=== PATIENT | male | born 1965 | race Caucasian/White ===

== ENCOUNTER 2024-10-15 10:57 | Emergency (ER) | payer OTHER ==
[2024-10-15 12:11] LABS: #Basophils 0.11 10x3/uL (0.0-0.2); #Eosinophils 0.27 10x3/uL (0.0-0.5); #Monocytes 0.95 10x3/uL (0.0-1.1); #Neutrophils 3.70 10x3/uL (1.5-8.4); %Basophils 1.4 % (0.0-2.0); %Eosinophils 3.5 % (0.0-6.0); %Lymphocytes 34.4 % (18.0-47.0); %Monocytes 12.3 % (0.0-10.0); %Neutrophils 47.9 % (40.0-75.0); Hematocrit 50.2 % (38.8-50.0); Hemoglobin 17.4 g/dL (13.5-17.5); Mean Corpuscular Hemoglobin 31.3 pg (27.0-33.0); Mean Corpuscular Volume 90.3 fL (81.2-95.1); Platelet Count 269 10x3/uL (150-450); Red Blood Cell (RBC) Count 5.56 10x6/uL (4.32-5.72); White Blood Cell (WBC) Count 7.73 10x3/uL (3.5-10.5)
[2024-10-15] MEDS ORDERED: Ondansetron PF 4 MG/2 ML Vial ONE (12:27)
[2024-10-15 12:40] LABS: Troponin I Less than 0.010 ng/mL (< 0.028)
[2024-10-15 12:47] LABS: ALT (SGPT) 49 U/L (Less than 45); AST (SGOT) 46 U/L (11-34); Albumin 3.8 g/dL (3.1-4.5); Alkaline Phosphatase 74 U/L (40-110); Anion Gap 13 mmol/L (10-20); BUN (Urea Nitrogen) 14 mg/dL (8.4-25.7); Bilirubin, Total 1.9 mg/dL (0.3-1.2); Calc. Creatinine Clearance 0 mL/min (70-130); Calcium 9.1 mg/dL (7.8-10.44); Carbon Dioxide 29 mmol/L (22-29); Chloride 102 mmol/L (98-107); Globulin 3.4 g/dL (2.4-3.5); Glucose 99 mg/dL (70-105); Lipase 33 U/L (8-78); Magnesium 2.0 mg/dL (1.6-2.6); Potassium 4.2 mmol/L (3.5-5.1); Sodium 140 mmol/L (136-145)
== END 2024-10-15 15:14 | disposition home or self-care (01) ==
LOC: CSHERS 10:57
DX: K57.92 Diverticulitis of intestine, part unspecified, without perforation or abscess without bleeding (principal); E11.9 Type 2 diabetes mellitus without complications
CPT/HCPCS: 36416; 76705; 80053; 83605; 83690; 83735; 83880; 84484; 85025; 93005; 96374; 96375; J2270; J2405

== ENCOUNTER 2024-12-12 19:55 | Inpatient (IN) | payer OTHER ==
[~2024-12-12 19:55] MED LIST: Iopamidol 300 61% 100 ML VIAL FS ONE
[2024-12-12 20:31] LABS: #Basophils 0.07 10x3/uL (0.0-0.2); #Eosinophils 0.54 10x3/uL (0.0-0.5); #Monocytes 1.14 10x3/uL (0.0-1.1); #Neutrophils 5.38 10x3/uL (1.5-8.4); %Basophils 0.8 % (0.0-2.0); %Eosinophils 6.0 % (0.0-6.0); %Lymphocytes 20.5 % (18.0-47.0); %Monocytes 12.7 % (0.0-10.0); %Neutrophils 59.7 % (40.0-75.0); Hematocrit 49.8 % (38.8-50.0); Hemoglobin 16.7 g/dL (13.5-17.5); Mean Corpuscular Hemoglobin 30.3 pg (27.0-33.0); Mean Corpuscular Volume 90.4 fL (81.2-95.1); Platelet Count 236 10x3/uL (150-450); Red Blood Cell (RBC) Count 5.51 10x6/uL (4.32-5.72); White Blood Cell (WBC) Count 9.01 10x3/uL (3.5-10.5)
[2024-12-12] MEDS ORDERED: Ondansetron PF 4 MG/2 ML Vial ONE (20:41)
[2024-12-12] MEDS ORDERED: Furosemide 40 MG (4 mL) VIAL ONE (20:41)
[2024-12-12 20:48] LABS: Troponin I Less than 0.010 ng/mL (< 0.028)
[2024-12-12 21:09] LABS: ALT (SGPT) 17 U/L (Less than 45); AST (SGOT) 25 U/L (11-34); Albumin 3.8 g/dL (3.1-4.5); Alkaline Phosphatase 67 U/L (40-110); Anion Gap 17 mmol/L (10-20); BUN (Urea Nitrogen) 18 mg/dL (8.4-25.7); Bilirubin, Total 1.8 mg/dL (0.3-1.2); Calc. Creatinine Clearance 0 mL/min (70-130); Calcium 8.5 mg/dL (7.8-10.44); Carbon Dioxide 20 mmol/L (22-29); Chloride 107 mmol/L (98-107); Globulin 3.3 g/dL (2.4-3.5); Glucose 126 mg/dL (70-105); Lipase 41 U/L (8-78); Magnesium 2.1 mg/dL (1.6-2.6); Potassium 4.7 mmol/L (3.5-5.1); Sodium 139 mmol/L (136-145)
[2024-12-12] MEDS ORDERED: diphenhydrAMINE 50 MG/ML VIAL ONE (21:21)
[2024-12-12 23:37] VITALS: BMI 38.0
[2024-12-12] MEDS ORDERED: Ondansetron PF 4 MG/2 ML Vial IVP PRN (23:37)
[2024-12-13] MEDS ORDERED: Simethicone Chewable 80 MG TAB PO PRN (00:17)
[2024-12-13 00:18] LABS: Troponin I Less than 0.010 ng/mL (< 0.028)
[2024-12-13 00:19] LABS: Magnesium 2.1 mg/dL (1.6-2.6)
[2024-12-13] MEDS: Azithromycin 500 MG in Sodium Chloride 0.9% 250 ML 250 ML IVPB SCH (00:22)
[2024-12-13] MEDS: cefTRIAXone\\ROCEPHIN 1 GM in Sodium Chloride 0.9% 100 ML IVPB SCH (01:02)
[2024-12-13 04:02] LABS: #Basophils 0.07 10x3/uL (0.0-0.2); #Eosinophils 0.52 10x3/uL (0.0-0.5); #Monocytes 1.15 10x3/uL (0.0-1.1); #Neutrophils 4.78 10x3/uL (1.5-8.4); %Basophils 0.8 % (0.0-2.0); %Eosinophils 6.1 % (0.0-6.0); %Lymphocytes 23.5 % (18.0-47.0); %Monocytes 13.5 % (0.0-10.0); %Neutrophils 55.9 % (40.0-75.0); Hematocrit 52.9 % (38.8-50.0); Hemoglobin 17.3 g/dL (13.5-17.5); Mean Corpuscular Hemoglobin 30.0 pg (27.0-33.0); Mean Corpuscular Volume 91.8 fL (81.2-95.1); Platelet Count 237 10x3/uL (150-450); Red Blood Cell (RBC) Count 5.76 10x6/uL (4.32-5.72); White Blood Cell (WBC) Count 8.55 10x3/uL (3.5-10.5)
[2024-12-13 04:15] LABS: ALT (SGPT) 16 U/L (Less than 45); AST (SGOT) 33 U/L (11-34); Albumin 4.2 g/dL (3.1-4.5); Alkaline Phosphatase 75 U/L (40-110); Anion Gap 16 mmol/L (10-20); BUN (Urea Nitrogen) 17 mg/dL (8.4-25.7); Bilirubin, Total 1.3 mg/dL (0.3-1.2); Calc. Creatinine Clearance 124 mL/min (70-130); Calcium 9.2 mg/dL (7.8-10.44); Carbon Dioxide 27 mmol/L (22-29); Chloride 102 mmol/L (98-107); Globulin 3.6 g/dL (2.4-3.5); Glucose 126 mg/dL (70-105); Potassium 4.1 mmol/L (3.5-5.1); Sodium 141 mmol/L (136-145)
[2024-12-13] MEDS: Nitroglycerin 2% Ointment 1 INCH/1 GM Packet TOP SCH (05:12)
[2024-12-13] MEDS ORDERED: Bumetanide 1 MG/4 ML VIAL IVP SCH (06:00)
[2024-12-13] MEDS: Acetaminophen 325 MG TAB PO PRN (07:33)
[2024-12-13] MEDS: Carvedilol 3.125 MG TAB PO SCH (08:05)
[2024-12-13] MEDS: Spironolactone 25 MG TAB PO SCH (08:05)
[2024-12-13] MEDS: Divalproex Sodium 250 MG ER.TAB PO SCH (08:50)
[2024-12-13] MEDS: Bumetanide 1 MG/4 ML VIAL IVP SCH (09:00)
[2024-12-13] MEDS: Famotidine 20 MG TAB PO SCH (09:09)
[2024-12-13] MEDS: Aspirin 81 mg Enteric Coated Tablet PO SCH (09:09)
[2024-12-13] MEDS: Famotidine/PF 20 mg/2ml Vial SLOW IVP SCH (09:10)
[2024-12-13] MEDS: Enoxaparin 40 MG (0.4 mL) SYRINGE SC SCH (09:13)
[2024-12-13] MEDS: diphenhydrAMINE 50 MG/ML VIAL IVP SCH (11:20)
[2024-12-13] MEDS: HYDROcodone/Acetaminophen 10/325 mg Tablet PO PRN (20:57)
[2024-12-14] MEDS: diphenhydrAMINE 25 MG CAP PO SCH (14:48)
[2024-12-14 16:45] VITALS: BP 126/62; TEMP 98.6
== END 2024-12-14 16:49 | DRG 190 ==
LOC: CSHERS 19:55 → CSHTELE 22:47 → EEVIPCON 22:47 → OBSVTOIN 12-13 16:57
PROVIDERS: ADMIT Internal Medicine; ATTEND Internal Medicine
DX: J44.1 Chronic obstructive pulmonary disease with (acute) exacerbation (principal); J96.01 Acute respiratory failure with hypoxia; K21.9 Gastro-esophageal reflux disease without esophagitis; E78.5 Hyperlipidemia, unspecified; E11.9 Type 2 diabetes mellitus without complications; I25.10 Atherosclerotic heart disease of native coronary artery without angina pectoris; F32.A Depression, unspecified; I86.1 Scrotal varices; K52.9 Noninfective gastroenteritis and colitis, unspecified; B18.2 Chronic viral hepatitis C; Z79.899 Other long term (current) drug therapy; Z79.51 Long term (current) use of inhaled steroids; Z79.82 Long term (current) use of aspirin; Z79.84 Long term (current) use of oral hypoglycemic drugs; Z95.5 Presence of coronary angioplasty implant and graft; Z88.8 Allergy status to other drugs, medicaments and biological substances
CPT/HCPCS: 36415; 36416; 71045; 71260; 74177; 80053; 83690; 83735; 83880; 84484; 85025; 85379; 93005; 93306; 94640; 94762; 96372; 96375; 96376; G0378; J0456; J0696; J1200; J1308; J1650; J1940; J2270; J2405; J2919; J3490; J7050; J7620; J7626; Q9967

== ENCOUNTER 2025-01-07 22:00 | Emergency (ER) | payer OTHER ==
[2025-01-07 22:33] LABS: Glucose, Urine (Dipstick) Negative (Negative); Leukocyte Negative (Negative); Protein, Urine (Dipstick) Negative (Neg-Trace); Specific Gravity, Urine Less/Equal 1.005 (1.005-1.030)
[2025-01-07 22:47] LABS: Bacteria/HPF Rare-Few HPF (None Seen); CAUTI Indications for Culture Dysuria,urgency,freq; Mucous/LPF Rare LPF (<2+); RBC/HPF None Seen HPF (0-3); WBC/HPF None Seen HPF (0-3)
[2025-01-07 22:49] LABS: Urine Culture Reflex No No
[2025-01-07 22:54] LABS: #Basophils 0.07 10x3/uL (0.0-0.2); #Eosinophils 0.44 10x3/uL (0.0-0.5); #Monocytes 0.99 10x3/uL (0.0-1.1); #Neutrophils 3.60 10x3/uL (1.5-8.4); %Basophils 0.8 % (0.0-2.0); %Eosinophils 5.2 % (0.0-6.0); %Lymphocytes 39.1 % (18.0-47.0); %Monocytes 11.7 % (0.0-10.0); %Neutrophils 42.8 % (40.0-75.0); Hematocrit 49.0 % (38.8-50.0); Hemoglobin 16.5 g/dL (13.5-17.5); Mean Corpuscular Hemoglobin 30.8 pg (27.0-33.0); Mean Corpuscular Volume 91.6 fL (81.2-95.1); Platelet Count 266 10x3/uL (150-450); Red Blood Cell (RBC) Count 5.35 10x6/uL (4.32-5.72); White Blood Cell (WBC) Count 8.43 10x3/uL (3.5-10.5)
[2025-01-07 23:08] LABS: ALT (SGPT) 16 U/L (Less than 45); AST (SGOT) 25 U/L (11-34); Albumin 4.1 g/dL (3.1-4.5); Alkaline Phosphatase 88 U/L (40-110); Anion Gap 13 mmol/L (10-20); BUN (Urea Nitrogen) 17 mg/dL (8.4-25.7); Bilirubin, Total 0.7 mg/dL (0.3-1.2); Calc. Creatinine Clearance 0 mL/min (70-130); Calcium 9.1 mg/dL (7.8-10.44); Carbon Dioxide 27 mmol/L (22-29); Chloride 102 mmol/L (98-107); Globulin 3.6 g/dL (2.4-3.5); Glucose 112 mg/dL (70-105); Lipase 42 U/L (8-78); Potassium 4.3 mmol/L (3.5-5.1); Sodium 138 mmol/L (136-145)
[2025-01-08] MEDS ORDERED: Ketorolac Tromethamine 30 MG (1 mL) VIAL ONE (01:31)
== END 2025-01-08 01:31 ==
LOC: CSHERS 22:00
DX: K57.32 Diverticulitis of large intestine without perforation or abscess without bleeding (principal); I11.0 Hypertensive heart disease with heart failure; I50.9 Heart failure, unspecified; E11.9 Type 2 diabetes mellitus without complications; J44.9 Chronic obstructive pulmonary disease, unspecified
CPT/HCPCS: 36415; 74177; 80053; 81001; 83605; 83690; 85025; 96374; J1885; Q9967

== ENCOUNTER 2025-01-11 14:49 | Emergency (ER) | payer OTHER ==
[2025-01-11 15:22] LABS: #Basophils 0.07 10x3/uL (0.0-0.2); #Eosinophils 0.39 10x3/uL (0.0-0.5); #Monocytes 1.17 10x3/uL (0.0-1.1); #Neutrophils 6.75 10x3/uL (1.5-8.4); %Basophils 0.6 % (0.0-2.0); %Eosinophils 3.3 % (0.0-6.0); %Lymphocytes 29.4 % (18.0-47.0); %Monocytes 9.8 % (0.0-10.0); %Neutrophils 56.4 % (40.0-75.0); Hematocrit 51.8 % (38.8-50.0); Hemoglobin 17.2 g/dL (13.5-17.5); Mean Corpuscular Hemoglobin 30.4 pg (27.0-33.0); Mean Corpuscular Volume 91.5 fL (81.2-95.1); Platelet Count 269 10x3/uL (150-450); Red Blood Cell (RBC) Count 5.66 10x6/uL (4.32-5.72); White Blood Cell (WBC) Count 11.96 10x3/uL (3.5-10.5)
[2025-01-11 15:34] LABS: ALT (SGPT) 27 U/L (Less than 45); AST (SGOT) 31 U/L (11-34); Albumin 4.3 g/dL (3.1-4.5); Alkaline Phosphatase 90 U/L (40-110); Anion Gap 16 mmol/L (10-20); BUN (Urea Nitrogen) 9 mg/dL (8.4-25.7); Bilirubin, Total 1.7 mg/dL (0.3-1.2); Calc. Creatinine Clearance 0 mL/min (70-130); Calcium 9.7 mg/dL (7.8-10.44); Carbon Dioxide 30 mmol/L (22-29); Chloride 99 mmol/L (98-107); Globulin 3.6 g/dL (2.4-3.5); Glucose 130 mg/dL (70-105); Lipase 147 U/L (8-78); Magnesium 1.9 mg/dL (1.6-2.6); Potassium 4.3 mmol/L (3.5-5.1); Sodium 141 mmol/L (136-145)
[2025-01-11 15:38] LABS: Troponin I Less than 0.010 ng/mL (< 0.028)
[2025-01-11 16:09] LABS: Glucose, Urine (Dipstick) Normal (Negative); Leukocyte Negative (Negative); Protein, Urine (Dipstick) Negative (Neg-Trace); Specific Gravity, Urine 1.010 (1.005-1.030)
[2025-01-11 16:25] LABS: Bacteria/HPF None Seen HPF (None Seen); CAUTI Indications for Culture Pelvic or flank pain; RBC/HPF None Seen HPF (0-3); Urine Culture Reflex No No; WBC/HPF None Seen HPF (0-3)
[2025-01-11] MEDS ORDERED: Amoxicillin/Potassium Clav 875 MG TAB ONE (16:49)
== END 2025-01-11 17:27 ==
LOC: EEVIPCON 14:49 → CSHERS 14:49
DX: K52.9 Noninfective gastroenteritis and colitis, unspecified (principal); J44.9 Chronic obstructive pulmonary disease, unspecified; I11.0 Hypertensive heart disease with heart failure; I50.9 Heart failure, unspecified; E11.9 Type 2 diabetes mellitus without complications
CPT/HCPCS: 36416; 71045; 71260; 74177; 80053; 81001; 83690; 83735; 83880; 84484; 85025; 93005; 94640; 96374; 96375; J2919; Q9967